=== PATIENT | female | born 1950 | race Caucasian/White ===

== ENCOUNTER → 2020-09-11 | Outpatient (CLI) | payer MEDICARE, OTHER ==
[~2020-09-11] MED LIST: IOPAMIDOL 370 MG/ML 200 ML INFUS..BTL INJ ONE; SODIUM CHLORIDE 0.9% 100 ML ONE
[2020-09-11 12:36] LABS: BLOOD UREA NITROGEN 18 mg/dL (7-26); BUN/CREATININE RATIO 20 (6-25); CREATININE, SERUM 0.88 mg/dL (0.57-1.11); EST GLOMERULAR FILTRATION RATE > 60 ML/MIN (60-)
--- NOTE | 2020-09-11 13:39 | Diagnostic Imaging Report ---
CTA NECK HISTORY: Bilateral carotid disease COMPARISON: None. TECHNIQUE: CTA of the neck was performed with intravenous iodine based contrast. Coronal, sagittal, 3-D, and oblique maximum intensity projection reformations were created. One or more of the following dose reduction techniques were used: Automated exposure control, adjustment of the mA and/or kV according to patient size, and/or utilization of iterative reconstruction technique. DISCUSSION: If present, any cervical carotid stenosis will be measured as a percentage relative to the [place] artery distal to the stenosis (NASCET). There are mild calcifications in the aortic arch and proximal great vessels without significant stenosis. Right Carotid: Mild calcified plaque in the proximal right common carotid artery does not cause significant stenosis. Severe calcified plaque at the right carotid bulb causes up to 80% focal stenosis in the proximal right internal carotid artery; this segment of stenosis measures up to 1.2 cm in length. Left Carotid: Moderate calcified plaque at the left carotid bulb causes less than 50% focal stenosis in the proximal left internal carotid artery. The left internal carotid artery has a retropharyngeal course. Right vertebral artery: Mild focal stenosis at the right vertebral artery ostium due to focal calcified plaque. Left vertebral artery: Patent, no abnormalities. The intracranial arterial vasculature is partially imaged. There is minimal calcified plaque in the right vertebral artery V4 segment without significant stenosis. Bilateral carotid siphon calcified plaque also does not cause significant stenosis. Additional findings: Median sternotomy changes are present. Coronary artery calcifications are present. There are mild to moderate degenerative changes throughout the spine. IMPRESSION: 1. Up to 80% focal stenosis in the proximal right internal carotid artery due to calcified plaque. 2. Moderate left carotid bulb calcified plaque without significant stenosis. 3. Mild focal stenosis at the right vertebral artery ostium due to calcified plaque. Signed by: Dr. Frederikc Herrera M.D. on 09/11/2020 1:36 PM
== END ==
LOC: CT 11:47
PROVIDERS: ATTEND Internal Medicine
DX: I25.10 Atherosclerotic heart disease of native coronary artery without angina pectoris (principal); I65.23 Occlusion and stenosis of bilateral carotid arteries
CPT/HCPCS: 36415; 70498; 82565; 84520; J7050; Q9967

== ENCOUNTER → 2021-11-06 | Outpatient (CLI) | payer MEDICARE, OTHER | LOC: MAMMO 12:44 | PROVIDERS: ATTEND Internal Medicine | DX: Z12.31 Encounter for screening mammogram for malignant neoplasm of breast (principal); M16.12 Unilateral primary osteoarthritis, left hip | CPT/HCPCS: 77067 ==

== ENCOUNTER 2022-07-28 06:11 | Observation (INO) | payer MEDICARE, OTHER ==
[2022-07-27 12:18] LABS: BASOPHILS # (AUTO) 0.1 (0.0-0.1); BASOPHILS % 1.3 % (0.0-1.0); EOSINOPHILS # (AUTO) 0.3 (0.0-0.4); HEMATOCRIT 36.4 % (34.2-44.1); HEMOGLOBIN 10.8 g/dL (12.0-16.0); LYMPHOCYTES # (AUTO) 1.2 (1.0-3.2); LYMPHOCYTES % 19.4 % (18.0-39.1); MEAN CORPUSCULAR HEMOGLOBIN 27.8 pg (28-32); MEAN CORPUSCULAR HGB CONC 29.7 g/dL (31-35); MEAN CORPUSCULAR VOLUME 93.6 fL (81-99); MONOCYTES # (AUTO) 0.5 (0.2-0.8); MONOCYTES % 7.6 % (4.4-11.3); NEUTROPHILS % 66.4 % (38.7-80.0); PLATELET COUNT 268 x10e3/uL (140-360); RED BLOOD COUNT 3.89 x10e6/uL (3.6-5.1); RED CELL DISTRIBUTION WIDTH 14.7 % (11.7-14.4)
[~2022-07-28 06:11] MED LIST changes: +ATORVASTATIN CA20 MG PO; +CELEXA20 MG PO; +CLOPIDOGREL75 MG PO; +FEROSUL325 MG PO; +GLIMEPIRIDE2 MG PO; +HYDROCODON-ACE1 EAC9 PO; -IOPAMIDOL 370 MG/ML 200 ML INFUS..BTL INJ ONE; +LISINOPRIL10 MG PO; +METFORMIN HCL1000 MG PO; +METOPROLOL SUCC50 MG PO; +NEURONTIN100 MG PO; +OMEPRAZOLE40 MG PO; -SODIUM CHLORIDE 0.9% 100 ML ONE; +ZOLPIDEM TARTRAT5 MG PO
[2022-07-28] MEDS ORDERED: DEXAMETHASONE SOD PHOS 10 MG/1 ML VIAL ONE (06:45)
[2022-07-28] MEDS ORDERED: CELECOXIB 200 MG CAP ONE (06:45)
[2022-07-28] MEDS ORDERED: GABAPENTIN 300 MG CAP ONE (06:45)
[2022-07-28 07:38] LABS: ANION GAP 14.4 mmol/L (8-16); CALCIUM 9.2 mg/dL (8.4-10.2); CREATININE, SERUM 1.18 mg/dL (0.57-1.11); POTASSIUM 4.4 mmol/L (3.5-5.1)
[2022-07-28] MEDS ORDERED: ROPIVACAINE 246.25 MG, EPINEPHRINE HCL 1:1000 1ML 0.5 MG, CLONIDINE HCL 0.08 MG, KETORO... INJ ONE ×5 (08:00)
[2022-07-28] MEDS ORDERED: Vancomycin IV 1,000 MG ONE (08:45)
[2022-07-28] MEDS ORDERED: SODIUM CHLORIDE 0.9% 500ML 500 ML ONE (08:45)
[2022-07-28] MEDS ORDERED: TRANEXAMIC ACID 20 ML ONE (08:45)
[2022-07-28] MEDS ORDERED: FAMOTIDINE 20 MG/2 ML VIAL IV ONE (10:08)
[2022-07-28] MEDS ORDERED: ALBUTEROL SULFATE HFA 8GM INHALATION AEROSOL INH ONE (11:03)
[2022-07-28] MEDS ORDERED: ACETAMINOPHEN 650 MG SUPP PR PRN (11:15)
[2022-07-28] MEDS ORDERED: HYDROCODONE/APAP 7.5MG-325MG 1 EA TAB PO PRN (11:15)
[2022-07-28] MEDS ORDERED: DIPHENHYDRAMINE HCL INJ 50 MG/ML VIAL IV PRN (11:15)
[2022-07-28] MEDS ORDERED: HYDROCODONE/APAP 5MG-325MG TAB PO PRN (11:15)
[2022-07-28] MEDS ORDERED: DOCUSATE SODIUM 100 MG CAP PO PRN (11:15)
[2022-07-28] MEDS ORDERED: ONDANSETRON HCL INJ 2MG/ML 2ML 2 MG/ML VIAL IV PRN (11:15)
[2022-07-28] MEDS ORDERED: HYDROMORPHONE 1MG/1ML INJ ONE ×2 (11:39→11:55)
[2022-07-28] MEDS ORDERED: ROPIVACAINE 0.5% 5 MG/ML 30 ML SDV ONE (13:47)
[2022-07-28] MEDS ORDERED: HYDROCODONE/APAP 7.5MG-325MG 1 EA TAB ONE (15:34)
[2022-07-28 15:50] VITALS: BP 115/58
[2022-07-28] MEDS ORDERED: SODIUM CHLORIDE 0.9% 1000ML 1,000 ML IV SCH (17:00)
[2022-07-28] MEDS ORDERED: CELECOXIB 100 MG CAP PO SCH (17:00)
[2022-07-28] MEDS ORDERED: FENTANYL CITRATE/PF 100MCG/2 ML INJ ONE (19:36)
[2022-07-28] MEDS ORDERED: MIDAZOLAM HCL 2 MG/2 ML VIAL ONE (19:36)
[2022-07-28] MEDS ORDERED: ASPIRIN 325 MG TAB PO SCH (20:00)
[2022-07-28] MEDS ORDERED: ZOLPIDEM TARTRATE 5 MG TAB PO PRN (21:00)
[2022-07-29] MEDS ORDERED: ACETAMINOPHEN 1000 MG/100 ML IV PRN (11:15)
== END 2022-07-28 16:38 | disposition home or self-care (01) ==
LOC: OR 06:11 → PACU V 11:17
PROVIDERS: ADMIT Specialist; ATTEND Specialist
DX: M17.11 Unilateral primary osteoarthritis, right knee (principal); E11.9 Type 2 diabetes mellitus without complications; I11.9 Hypertensive heart disease without heart failure; Z95.1 Presence of aortocoronary bypass graft; Z79.891 Long term (current) use of opiate analgesic; K21.9 Gastro-esophageal reflux disease without esophagitis; I25.10 Atherosclerotic heart disease of native coronary artery without angina pectoris; I10 Essential (primary) hypertension; Z95.5 Presence of coronary angioplasty implant and graft; Z01.812 Encounter for preprocedural laboratory examination; Z01.818 Encounter for other preprocedural examination; Z79.84 Long term (current) use of oral hypoglycemic drugs
CPT/HCPCS: 27447; 36415 ×2; 71046; 73560; 80048; 82948; 85025; 86850; 86900; 86920; 97116; 97161; 97530; C1713; C1776 ×2; G0378; J0171; J0690; J1100; J1170; J1885; J2795; J3370; J7040; J2250; J3010

== ENCOUNTER 2023-01-06 10:50 | Outpatient (RCR) | payer MEDICARE, OTHER | END 2023-01-22 | LOC: PT 10:50 | PROVIDERS: ATTEND Physician Assistant | DX: Z96.651 Presence of right artificial knee joint (principal) ==

== ENCOUNTER 2023-01-27 12:58 | Outpatient (RCR) | payer MEDICARE, OTHER | END 2023-02-21 | LOC: PT 12:58 | PROVIDERS: ATTEND Physician Assistant | DX: Z96.651 Presence of right artificial knee joint (principal) ==

== ENCOUNTER → 2023-05-13 | Outpatient (CLI) | payer MEDICARE, OTHER | LOC: DX 14:22 | PROVIDERS: ATTEND Internal Medicine | DX: Z13.820 Encounter for screening for osteoporosis (principal); Z12.31 Encounter for screening mammogram for malignant neoplasm of breast | CPT/HCPCS: 72110; 77080 ==

== ENCOUNTER → 2024-07-06 | Outpatient (REF) | payer MEDICARE, OTHER | LOC: RAD 10:35 | PROVIDERS: ATTEND Internal Medicine | DX: M47.12 Other spondylosis with myelopathy, cervical region (principal) | CPT/HCPCS: 72050 ==

== ENCOUNTER → 2024-07-06 | Outpatient (REF) | payer MEDICARE, OTHER | LOC: RAD 10:37 | PROVIDERS: ATTEND Physical Medicine & Rehabilitation Pain Medicine | DX: M75.42 Impingement syndrome of left shoulder (principal); M75.41 Impingement syndrome of right shoulder ==

== ENCOUNTER → 2024-08-02 | Outpatient (REF) | payer MEDICARE | LOC: DX 14:30 | PROVIDERS: ATTEND Internal Medicine | DX: M85.88 Other specified disorders of bone density and structure, other site (principal) | CPT/HCPCS: 77080 ==

== ENCOUNTER → 2025-01-11 | Outpatient (REF) | payer MEDICARE, OTHER | LOC: RAD 12:56 | PROVIDERS: ATTEND Internal Medicine | DX: J20.8 Acute bronchitis due to other specified organisms (principal) | CPT/HCPCS: 71046 ==

== ENCOUNTER → 2025-06-15 | Outpatient (REF) | payer MEDICARE, OTHER | LOC: MRI 12:55 | PROVIDERS: ATTEND Internal Medicine | DX: Z12.31 Encounter for screening mammogram for malignant neoplasm of breast (principal); R41.3 Other amnesia | CPT/HCPCS: 70551; 77067 ==